=== PATIENT | male | born 1965 | race Caucasian/White ===

== ENCOUNTER 2018-02-26 16:27 | Inpatient (IN) | payer MEDICAID ==
[~2018-02-26] VITALS: Ht 175.3 cm; Wt 67.2 kg
[2018-02-26] MEDS ORDERED: ALBUTEROL SULF 2.5 MG/0.5ML(0.5%) NEB SOLN NEB ONE (19:30)
[2018-02-26] MEDS ORDERED: DEXAMETHASONE SOD PHOS 10MG/1ML VIAL INJ IM ONE (19:30)
[2018-02-26] MEDS ORDERED: IPRATROPIUM BROM 0.5 MG/2.5ML INH SOL NEB ONE (19:30)
[2018-02-26] MEDS ORDERED: BACLOFEN 10 MG TAB PO ONE (20:00)
[2018-02-26] MEDS ORDERED: MEPERIDINE HCL (50 MG/ML) 1 ML VIAL IV ONE (20:00)
[2018-02-26] MEDS ORDERED: ONDANSETRON HCL 4 MG/2 ML VIAL IV ONE (20:00)
[2018-02-26] MEDS ORDERED: ACETAMINOPHEN 325 MG TAB PO PRN (21:00)
[2018-02-26] MEDS ORDERED: TEMAZEPAM 15 MG CAP PO PRN (21:00)
[2018-02-26] MEDS ORDERED: CYCLOBENZAPRINE HCL 10 MG TAB PO PRN (21:00)
[2018-02-26] MEDS ORDERED: ONDANSETRON HCL 4 MG/2 ML VIAL IV PRN (21:00)
[2018-02-26] MEDS ORDERED: MORPHINE SULFATE 4 MG/ML SYR/VIAL IV PRN (21:00)
[2018-02-26 21:24] LABS: Basophils # (auto) 0.1 uL; Basophils % (auto) 0.6 % (0.0-2.0); Eosinophils # (auto) 0.1 uL; Eosinophils % (auto) 0.7 % (0.0-7.0); Hematocrit 47.2 % (41.0-53.0); Lymphocytes # (auto) 2.6 uL; Lymphocytes % (auto) 18.5 % (10.0-50.0); Mean Corpuscular Hemoglobin 30.7 pg (28.0-32.0); Mean Corpuscular Volume 90.3 fL (80.0-100.0); Monocytes # (auto) 0.6 uL; Monocytes % (auto) 4.3 % (0.0-12.0); Neutrophils # (auto) 10.7 uL; Neutrophils % (auto) 75.9 % (37.0-80.0); Nucleated Red Blood Cells % 0.1 %; Platelet Count (auto) 334 10^3/uL (140-450); Red Blood Cells 5.22 10^6/uL (4.5-5.90); Red Cell Distribution Width 13.2 % (11.8-14.3)
[2018-02-26 21:38] LABS: Albumin 3.5 g/dL (3.4-5.0); Calcium 8.1 mg/dL (8.5-10.1); Potassium 3.7 mmol/L (3.5-5.1)
[2018-02-26 21:41] LABS: BUN/Creatinine Ratio 14.9; Bilirubin, Total 0.3 mg/dL (0.2-1.0); Total Protein 7.3 g/dL (6.4-8.2)
[2018-02-26] MEDS ORDERED: LABETALOL HCL 5 MG/ML ML 20ML VIAL IV ONE (22:45)
[2018-02-26] MEDS: FAMOTIDINE 20 MG TAB PO SCH (23:16)
[2018-02-26 23:41] VITALS: BP 185/113
[2018-02-27 05:43] VITALS: BP 144/94
[2018-02-27 08:20] VITALS: BP 160/100
[2018-02-27] MEDS ORDERED: METOPROLOL TARTRATE 25 MG TAB PO SCH (10:00)
[2018-02-27] MEDS: FAMOTIDINE 20 MG TAB PO SCH (10:15)
[2018-02-27] MEDS ORDERED: THIAMINE 100mg/ml INJ (200mg/2ml VIAL) IV ONE (11:15)
[2018-02-27] MEDS ORDERED: LORazepam 2MG/ML-1ML VIAL IV PRN (11:15)
[2018-02-27] MEDS ORDERED: LISINOPRIL 10 MG TAB PO ONE (11:15)
[2018-02-27] MEDS: HYDROcodone-ACET 5/325MG TAB PO PRN ×2 (11:24→16:37)
[2018-02-27 12:16] VITALS: BP 141/97
[2018-02-27 16:14] VITALS: BP 141/97
[2018-02-27 16:51] VITALS: BP 131/93
[2018-02-28] MEDS ORDERED: THIAMINE 100mg/ml INJ (200mg/2ml VIAL) IV SCH (10:00)
[2018-02-28] MEDS ORDERED: LISINOPRIL 10 MG TAB PO SCH (10:00)
== END 2018-02-27 16:45 | disposition home or self-care (01) | DRG 342 ==
LOC: ER 16:32 → OVERFLOW 20:55 → CENTRAL 22:17
PROVIDERS: ADMIT Nurse Practitioner; ATTEND Internal Medicine
DX: S43.101A Unspecified dislocation of right acromioclavicular joint, initial encounter (principal); I10 Essential (primary) hypertension; S16.1XXA Strain of muscle, fascia and tendon at neck level, initial encounter; M19.90 Unspecified osteoarthritis, unspecified site; M54.9 Dorsalgia, unspecified; M62.838 Other muscle spasm; V29.9XXA Motorcycle rider (driver) (passenger) injured in unspecified traffic accident, initial encounter; Z72.0 Tobacco use; Z79.899 Other long term (current) drug therapy; Y93.89 Activity, other specified; Y92.89 Other specified places as the place of occurrence of the external cause; Y99.8 Other external cause status
CPT/HCPCS: 36415; 72040; 73030; 80053; 85025; 96374; 96375; G0378; J2405

== ENCOUNTER 2018-10-25 13:24 | Emergency (ER) | payer MEDICAID ==
[~2018-10-25] VITALS: Ht 177.8 cm; Wt 72.6 kg
[2018-10-25 13:57] LABS: Urine WBC None Seen /hpf (0 - 3)
[2018-10-25 14:04] LABS: Urine Bacteria NONE SEEN /hpf (None Seen); Urine Blood 2+ /uL (Negative); Urine Specific Gravity 1.005 (1.001-1.035)
[2018-10-25] MEDS ORDERED: SODIUM CHLORIDE 0.9% 1,000 ML IV ONE (15:30)
[2018-10-25 17:44] VITALS: BP 142/78
[2018-10-25] MEDS ORDERED: KETOROLAC TROMETH 30 MG/ML 1ML VIAL IV ONE (17:45)
== END 2018-10-25 17:46 | disposition home or self-care (01) ==
LOC: ER 13:24
DX: R10.9 Unspecified abdominal pain (principal); R11.2 Nausea with vomiting, unspecified; F17.210 Nicotine dependence, cigarettes, uncomplicated; I10 Essential (primary) hypertension; M19.90 Unspecified osteoarthritis, unspecified site; Z87.442 Personal history of urinary calculi
CPT/HCPCS: 74176; 81001; 93005; 96360; 99284; J7030

== ENCOUNTER 2020-07-31 21:44 | Emergency (ER) | payer MEDICAID ==
[~2020-07-31] VITALS: Ht 175.3 cm; Wt 74.8 kg
[2020-08-01] MEDS ORDERED: TETANUS-DIPTH-ACEL PERTUSSIS 0.5ML SYR Tdap IM ONE (02:30)
[2020-08-01] MEDS ORDERED: cefTRIAXone SOD 1,000 MG VL IM ONE (02:30)
[2020-08-01] MEDS ORDERED: cloNIDine HCL 0.1 MG TAB PO ONE (02:45)
[2020-08-01 03:26] VITALS: BP 140/91
[2020-08-01] MEDS ORDERED: BACITRACIN TOP OINT 1 UD PKG TOP ONE (05:45)
== END 2020-08-01 05:59 | disposition home or self-care (01) ==
LOC: ER 21:45
DX: S67.02XA Crushing injury of left thumb, initial encounter (principal); S62.525B Nondisplaced fracture of distal phalanx of left thumb, initial encounter for open fracture; F17.210 Nicotine dependence, cigarettes, uncomplicated; F12.10 Cannabis abuse, uncomplicated; X58.XXXA Exposure to other specified factors, initial encounter; Y93.89 Activity, other specified; Y92.89 Other specified places as the place of occurrence of the external cause; Y99.8 Other external cause status
CPT/HCPCS: 12002; 73130; 90471; 90715; 96372; 99284; J0696

== ENCOUNTER 2021-03-19 10:55 | Emergency (ER) | payer MEDICAID ==
[~2021-03-19] VITALS: Ht 162.6 cm; Wt 74.8 kg
[2021-03-19 11:00] VITALS: BP 155/122
[2021-03-19 12:03] LABS: Basophils # (auto) 0.1 10 ^3/uL (0-0.2); Eosinophils # (auto) 0.5 10 ^3/uL (0-0.8); Eosinophils % (auto) 5.3 % (0.0-7.0); Hematocrit 45.5 % (41.0-53.0); Hemoglobin 15.7 g/dL (13.5-17.5); Lymphocytes # (auto) 3.3 10 ^3/uL (0.4-5.4); Lymphocytes % (auto) 31.7 % (10.0-50.0); Mean Corpuscular Hgb Conc. 34.5 g/dL (32.0-36.0); Mean Corpuscular Volume 84.2 fL (80.0-100.0); Monocytes # (auto) 0.4 10 ^3/uL (0-1.3); Monocytes % (auto) 4.2 % (0.0-12.0); Neutrophils # (auto) 5.9 10 ^3/uL (1.6-8.6); Neutrophils % (auto) 57.8 % (37.0-80.0); Nucleated Red Blood Cells % 0.1 %; Red Cell Distribution Width 13.7 % (11.8-14.3); White Blood Cell 10.3 10^3/uL (4.4-10.8)
[2021-03-19 12:37] LABS: Albumin 3.8 g/dL (3.4-5.0); Bilirubin, Total 0.5 mg/dL (0.2-1.0); Calcium 9.2 mg/dL (8.5-10.1); Total Protein 7.2 g/dL (6.4-8.2)
[2021-03-19] MEDS ORDERED: cefTRIAXone SOD 500 MG VL IM ONE (13:45)
[2021-03-19] MEDS ORDERED: TRAM-297 PO (13:56)
[2021-03-19] MEDS ORDERED: DOXY100C2 PO (13:56)
== END 2021-03-19 16:03 | disposition home or self-care (01) ==
LOC: ER 10:55
DX: N45.1 Epididymitis (principal); I10 Essential (primary) hypertension; F17.210 Nicotine dependence, cigarettes, uncomplicated; F12.10 Cannabis abuse, uncomplicated; Z87.442 Personal history of urinary calculi
CPT/HCPCS: 36415; 74176; 76870; 80053; 83690; 85025; 96372; 99284; J0696

== ENCOUNTER 2023-02-22 08:54 | Inpatient (IN) | payer MEDICAID ==
[~2023-02-22] VITALS: Ht 175.3 cm; Wt 73.8 kg
[~2023-02-22 08:54] MED LIST: DOXY100C4 PO; TRAM-297 PO
[2023-02-22 10:02] LABS: Basophils # (auto) 0.1 10 ^3/uL (0-0.2); Basophils % (auto) 1.1 % (0.0-2.0); Eosinophils # (auto) 0.6 10 ^3/uL (0-0.8); Eosinophils % (auto) 5.1 % (0.0-7.0); Hematocrit 42.9 % (41.0-53.0); Hemoglobin 14.5 g/dL (13.5-17.5); Lymphocytes # (auto) 3.2 10 ^3/uL (0.4-5.4); Lymphocytes % (auto) 26.8 % (10.0-50.0); Mean Corpuscular Hemoglobin 28.6 pg (28.0-32.0); Mean Corpuscular Hgb Conc. 33.7 g/dL (32.0-36.0); Monocytes # (auto) 0.7 10 ^3/uL (0-1.3); Monocytes % (auto) 5.5 % (0.0-12.0); Neutrophils # (auto) 7.3 10 ^3/uL (1.6-8.6); Neutrophils % (auto) 61.5 % (37.0-80.0); Nucleated Red Blood Cells % 0.1 %; Red Blood Cells 5.05 10^6/uL (4.5-5.90); Red Cell Distribution Width 14.4 % (11.8-14.3); White Blood Cell 11.8 10^3/uL (4.4-10.8)
[2023-02-22 10:23] LABS: Alanine Aminotransferase 13 U/L (7-40); Albumin 4.3 g/dL (3.2-4.8); Alkaline Phosphatase 97 U/L (46-116); Anion Gap 5 (5-15); Aspartate Aminotransferase 18 U/L (13-40); BUN/Creatinine Ratio 14.9 (10.0-20.0); Blood Urea Nitrogen 21 mg/dL (9-23); Carbon Dioxide 28 mmol/L (20-30); Chloride 106 mmol/L (98-107); Glucose 89 mg/dL (74-106); Lipase 48 U/L (12-53); Sodium 139 mmol/L (136-145)
[2023-02-22 10:24] LABS: Bilirubin, Total 0.3 mg/dL (0.2-1.0)
[2023-02-22] MEDS ORDERED: MORPHINE SULFATE INJ 2 MG/ml SYRG IV ONE (11:00)
[2023-02-22] MEDS ORDERED: SODIUM CHLORIDE 0.9% 1,000 ML IV ONE (11:00)
[2023-02-22] MEDS ORDERED: SODIUM CHLORIDE 0.9% 500 ML IVB ONE (11:00)
[2023-02-22] MEDS ORDERED: ONDANSETRON HCL 4 MG/2 ML VIAL IV ONE (11:00)
[2023-02-22] MEDS ORDERED: cloNIDine HCL 0.1 MG TAB PO ONE (11:00)
[2023-02-22] MEDS ORDERED: MORPHINE SULFATE INJ 2 MG/ml SYRG ONE (11:30)
[2023-02-22] MEDS ORDERED: cloNIDine HCL 0.1 MG TAB ONE (11:30)
[2023-02-22] MEDS ORDERED: ONDANSETRON HCL 4 MG/2 ML VIAL ONE (11:30)
[2023-02-22] MEDS ORDERED: IOHEXOL 300 MG/ML 100ML BOTTLE IJ ONE (12:07)
[2023-02-22 12:35] LABS: Urine Bacteria NONE SEEN /hpf (None Seen); Urine Blood 3+ /uL (Negative); Urine Clarity Clear (Clear); Urine Color Yellow (Yellow); Urine Protein, UAD TRACE (Negative); Urine Specific Gravity 1.014 (1.001-1.035); Urine Urobilinogen Normal (Negative); Urine WBC 36 /hpf (0 - 3); Urine pH 6.5 (5.0-8.0)
[2023-02-22] MEDS ORDERED: cefTRIAXone 1GM/50ML D5W 50 ML IV ONE (13:30)
[2023-02-22] MEDS: SODIUM CHLORIDE 0.9% 1,000 ML IV SCH (14:00)
[2023-02-22] MEDS ORDERED: ONDANSETRON HCL 4 MG/2 ML VIAL IV PRN (14:00)
[2023-02-22] MEDS ORDERED: ACETAMINOPHEN 325 MG TAB PO PRN (14:00)
[2023-02-22 15:35] VITALS: PULSE 20; RESP 20; O2SAT 96
[2023-02-22 20:06] VITALS: BP 155/92; PULSE 83; RESP 17; TEMP 97.7; O2SAT 96
[2023-02-22 20:08] VITALS: BP 155/92; PULSE 83; RESP 17; TEMP 97.5; O2SAT 96
[2023-02-22] MEDS ORDERED: HYDROcodone-ACET 5/325MG TAB ONE (20:57)
[2023-02-22] MEDS: HYDROcodone-ACET 5/325MG TAB PO PRN (21:04)
[2023-02-22] MEDS ORDERED: hydrALAZINE HCL 20 MG/ML VL ONE (21:31)
[2023-02-22] MEDS: hydrALAZINE HCL 20 MG/ML VL IV PRN (21:36)
[2023-02-23 06:37] LABS: Alanine Aminotransferase 12 U/L (7-40); Albumin 3.9 g/dL (3.2-4.8); Alkaline Phosphatase 90 U/L (46-116); Anion Gap 5 (5-15); Aspartate Aminotransferase 15 U/L (13-40); BUN/Creatinine Ratio 12.7 (10.0-20.0); Blood Urea Nitrogen 20 mg/dL (9-23); Calcium 8.5 mg/dL (8.7-10.4); Carbon Dioxide 25 mmol/L (20-30); Chloride 108 mmol/L (98-107); Glucose 93 mg/dL (74-106); Potassium 3.7 mmol/L (3.5-5.1); Sodium 138 mmol/L (136-145)
[2023-02-23 06:38] LABS: Bilirubin, Total 0.3 mg/dL (0.2-1.0); Total Protein 6.4 g/dL (5.7-8.2)
[2023-02-23 06:39] LABS: Basophils # (auto) 0.1 10 ^3/uL (0-0.2); Basophils % (auto) 0.9 % (0.0-2.0); Eosinophils # (auto) 0.7 10 ^3/uL (0-0.8); Eosinophils % (auto) 5.2 % (0.0-7.0); Hematocrit 41.6 % (41.0-53.0); Hemoglobin 14.1 g/dL (13.5-17.5); Lymphocytes # (auto) 3.8 10 ^3/uL (0.4-5.4); Lymphocytes % (auto) 28.7 % (10.0-50.0); Mean Corpuscular Hemoglobin 28.5 pg (28.0-32.0); Mean Corpuscular Volume 83.7 fL (80.0-100.0); Monocytes # (auto) 0.9 10 ^3/uL (0-1.3); Monocytes % (auto) 6.7 % (0.0-12.0); Neutrophils # (auto) 7.7 10 ^3/uL (1.6-8.6); Neutrophils % (auto) 58.5 % (37.0-80.0); Red Blood Cells 4.96 10^6/uL (4.5-5.90); Red Cell Distribution Width 14.3 % (11.8-14.3); White Blood Cell 13.2 10^3/uL (4.4-10.8)
[2023-02-23] MEDS: SODIUM CHLORIDE 0.9% 1,000 ML IV SCH ×2 (06:50→23:20)
[2023-02-23 08:00] VITALS: PULSE 88; RESP 17; RESP 18; O2SAT 98
[2023-02-23 09:00] VITALS: BP 156/106; PULSE 104; RESP 16; TEMP 98.3; O2SAT 97
[2023-02-23] MEDS: cefTRIAXone 1GM/50ML D5W 50 ML IV SCH (10:59)
[2023-02-23 13:00] VITALS: BP 171/107; PULSE 88; RESP 18; TEMP 98.4; O2SAT 98
[2023-02-23] MEDS: hydrALAZINE HCL 20 MG/ML VL IV PRN ×2 (16:19→22:28)
[2023-02-23 16:36] VITALS: BP 182/115; PULSE 93; RESP 20; TEMP 98.7; O2SAT 98
[2023-02-23] MEDS: HYDROcodone-ACET 5/325MG TAB PO PRN (18:03)
[2023-02-23 20:00] VITALS: BP 178/107; PULSE 103; RESP 20; TEMP 98.3; O2SAT 96
[2023-02-23 22:00] VITALS: BP 178/107; PULSE 103; RESP 20; TEMP 98.3; O2SAT 96
[2023-02-23] MEDS ORDERED: HYDROcodone-ACET 10/325MG TAB PO ONE (22:30)
[2023-02-24] VITALS (8 sets, daily range): BP systolic 116–169; BP diastolic 87–107; PULSE 72–105; RESP 15–21; TEMP 36.3; O2SAT 94–99
[2023-02-24] MEDS: hydrALAZINE HCL 20 MG/ML VL IV PRN ×2 (05:34→17:39)
[2023-02-24] MEDS: HYDROcodone-ACET 5/325MG TAB PO PRN (05:34)
[2023-02-24 06:47] LABS: INR 0.92 (0.9-1.15); Partial Thromboplastin Time 26.5 SEC (24.5-34.5); Prothrombin Time 9.7 sec (9.3-11.8)
[2023-02-24] MEDS: cefTRIAXone 1GM/50ML D5W 50 ML IV SCH (10:06)
[2023-02-24] MEDS: amLODIPine BESYLATE 5 MG TAB PO SCH (11:30)
[2023-02-24] MEDS ORDERED: MIDAZOLAM HCL 2MG/2ML 2ml VIAL (1mg/ml) ONE (14:09)
[2023-02-24] MEDS ORDERED: ROCURONIUM 10MG/ML 10ML VIAL IV ONE (14:09)
[2023-02-24] MEDS ORDERED: GLYCOPYRROLATE 0.2 MG/ML 1ML VIAL ONE (14:09)
[2023-02-24] MEDS ORDERED: ONDANSETRON HCL 4 MG/2 ML VIAL ONE (14:09)
[2023-02-24] MEDS ORDERED: LIDOCAINE 2% (LOCAL ANESTH.) PF 5ml SDV ONE (14:09)
[2023-02-24] MEDS ORDERED: fentaNYL CITRATE 100 MCG/2 ML VL ONE (14:09)
[2023-02-24] MEDS ORDERED: PROPOFOL 10 MG/ML 20 ML IV ONE (14:09)
[2023-02-24] MEDS ORDERED: HYDROmorphone HCL 2 MG/ML VL/or syr ONE (14:09)
[2023-02-24] MEDS ORDERED: KETOROLAC TROMETH 30 MG/ML 1ML VIAL ONE (14:10)
[2023-02-24] MEDS ORDERED: DexAMETHasone SOD PHOS 10MG/1ML VIAL INJ ONE (14:10)
[2023-02-24] MEDS ORDERED: ePHEDrine SULFATE 50 MG/ML AMP ONE (14:14)
[2023-02-24] MEDS ORDERED: SUGAMMADEX 200mg/2ml Vial (100MG/ML) IV ONE (15:08)
[2023-02-24] MEDS: SODIUM CHLORIDE 0.9% 1,000 ML IV SCH (16:00)
[2023-02-24] MEDS ORDERED: ONDANSETRON HCL 4 MG/2 ML VIAL IV PRN (16:15)
[2023-02-24] MEDS ORDERED: HYDROmorphone HCL 2 MG/ML VL/or syr IV PRN (16:15)
[2023-02-25 06:29] LABS: Basophils # (auto) 0 10 ^3/uL (0-0.2); Basophils % (auto) 0.2 % (0.0-2.0); Eosinophils # (auto) 0 10 ^3/uL (0-0.8); Hematocrit 36.3 % (41.0-53.0); Hemoglobin 12.3 g/dL (13.5-17.5); Lymphocytes # (auto) 1.5 10 ^3/uL (0.4-5.4); Lymphocytes % (auto) 9.8 % (10.0-50.0); Mean Corpuscular Hemoglobin 28.5 pg (28.0-32.0); Mean Corpuscular Hgb Conc. 33.8 g/dL (32.0-36.0); Mean Corpuscular Volume 84.3 fL (80.0-100.0); Monocytes # (auto) 0.8 10 ^3/uL (0-1.3); Monocytes % (auto) 5.1 % (0.0-12.0); Neutrophils # (auto) 12.9 10 ^3/uL (1.6-8.6); Neutrophils % (auto) 84.9 % (37.0-80.0); Red Blood Cells 4.31 10^6/uL (4.5-5.90); Red Cell Distribution Width 14.3 % (11.8-14.3); White Blood Cell 15.2 10^3/uL (4.4-10.8)
[2023-02-25 06:45] LABS: Anion Gap 7 (5-15); Carbon Dioxide 27 mmol/L (20-30); Chloride 105 mmol/L (98-107); Potassium 4.1 mmol/L (3.5-5.1); Sodium 139 mmol/L (136-145)
[2023-02-25 06:47] LABS: Calcium 8.8 mg/dL (8.7-10.4)
[2023-02-25 06:51] LABS: BUN/Creatinine Ratio 13.7 (10.0-20.0); Blood Urea Nitrogen 24 mg/dL (9-23); Glucose 141 mg/dL (74-106)
[2023-02-25] MEDS ORDERED: ERGOCALCIFEROL 50,000 UNIT(1.25MG) CAP PO SCH (07:45)
[2023-02-25 08:00] VITALS: BP 112/61; PULSE 94; RESP 20; TEMP 98.1; O2SAT 95
[2023-02-25] MEDS: amLODIPine BESYLATE 5 MG TAB PO SCH (10:23)
[2023-02-25] MEDS: SODIUM CHLORIDE 0.9% 1,000 ML IV SCH (10:23)
[2023-02-25] MEDS: cefTRIAXone 1GM/50ML D5W 50 ML IV SCH (10:23)
[2023-02-25 17:00] VITALS: BP 123/87; PULSE 105; RESP 17; TEMP 98.2; O2SAT 97
[2023-02-25 20:00] VITALS: RESP 20; O2SAT 95
[2023-02-26] MEDS: SODIUM CHLORIDE 0.9% 1,000 ML IV SCH ×2 (01:20→17:24)
[2023-02-26 05:00] VITALS: BP 115/92; PULSE 88; RESP 20; TEMP 98.4; O2SAT 96
[2023-02-26] MEDS: hydrALAZINE HCL 20 MG/ML VL IV PRN ×2 (05:13→17:24)
[2023-02-26 06:05] LABS: Basophils # (auto) 0.1 10 ^3/uL (0-0.2); Basophils % (auto) 0.9 % (0.0-2.0); Eosinophils # (auto) 0.5 10 ^3/uL (0-0.8); Hematocrit 38.9 % (41.0-53.0); Lymphocytes # (auto) 3.7 10 ^3/uL (0.4-5.4); Lymphocytes % (auto) 22.7 % (10.0-50.0); Mean Corpuscular Hemoglobin 28.4 pg (28.0-32.0); Mean Corpuscular Hgb Conc. 33.5 g/dL (32.0-36.0); Mean Corpuscular Volume 84.6 fL (80.0-100.0); Monocytes # (auto) 1.1 10 ^3/uL (0-1.3); Monocytes % (auto) 6.9 % (0.0-12.0); Neutrophils # (auto) 10.9 10 ^3/uL (1.6-8.6); Neutrophils % (auto) 66.5 % (37.0-80.0); Red Blood Cells 4.59 10^6/uL (4.5-5.90); Red Cell Distribution Width 14.8 % (11.8-14.3); White Blood Cell 16.3 10^3/uL (4.4-10.8)
[2023-02-26 06:14] LABS: Chloride 109 mmol/L (98-107); Potassium 3.5 mmol/L (3.5-5.1); Sodium 141 mmol/L (136-145)
[2023-02-26 06:15] LABS: Anion Gap 8 (5-15); Calcium 8.9 mg/dL (8.5-10.1); Carbon Dioxide 24 mmol/L (20-30)
[2023-02-26 06:21] LABS: BUN/Creatinine Ratio 11.9 (10.0-20.0); Blood Urea Nitrogen 16 mg/dL (9-23); Glucose 88 mg/dL (74-106)
[2023-02-26] MEDS ORDERED: ERGOCALCIFEROL 50,000 UNIT(1.25MG) CAP PO SCH (08:45)
[2023-02-26 09:00] VITALS: BP 140/97; PULSE 93; RESP 20; TEMP 98.8; O2SAT 95
[2023-02-26] MEDS: CYANOCOBALAMIN 500 MCG TAB PO SCH (10:12)
[2023-02-26] MEDS: levoFLOXacin 250 MG TAB PO SCH (10:13)
[2023-02-26] MEDS: MORPHINE SULFATE INJ 2 MG/ml SYRG IV PRN ×2 (10:13→20:30)
[2023-02-26] MEDS: amLODIPine BESYLATE 5 MG TAB PO SCH (10:13)
[2023-02-26 13:00] VITALS: BP 136/83; PULSE 96; RESP 18; TEMP 98.7; O2SAT 92
[2023-02-26 17:00] VITALS: BP 160/100; PULSE 99; RESP 20; TEMP 98.5; O2SAT 96
[2023-02-26 18:21] VITALS: BP 139/97
[2023-02-26 22:00] VITALS: BP 153/101; PULSE 96; RESP 18; TEMP 98.7; O2SAT 96
[2023-02-27 06:55] LABS: Chloride 107 mmol/L (98-107); Potassium 3.8 mmol/L (3.5-5.1); Sodium 139 mmol/L (136-145)
[2023-02-27 06:56] LABS: Anion Gap 8 (5-15); Calcium 8.8 mg/dL (8.5-10.1); Carbon Dioxide 24 mmol/L (20-30)
[2023-02-27 07:01] LABS: BUN/Creatinine Ratio 13.3 (10.0-20.0); Blood Urea Nitrogen 19 mg/dL (9-23); Glucose 102 mg/dL (74-106)
[2023-02-27 07:02] LABS: Basophils # (auto) 0.1 10 ^3/uL (0-0.2); Basophils % (auto) 0.7 % (0.0-2.0); Eosinophils # (auto) 0.7 10 ^3/uL (0-0.8); Eosinophils % (auto) 5.3 % (0.0-7.0); Hematocrit 41.3 % (41.0-53.0); Hemoglobin 13.9 g/dL (13.5-17.5); Lymphocytes # (auto) 3.4 10 ^3/uL (0.4-5.4); Lymphocytes % (auto) 24.7 % (10.0-50.0); Mean Corpuscular Hemoglobin 28.5 pg (28.0-32.0); Mean Corpuscular Hgb Conc. 33.6 g/dL (32.0-36.0); Mean Corpuscular Volume 84.7 fL (80.0-100.0); Monocytes % (auto) 7.1 % (0.0-12.0); Neutrophils # (auto) 8.6 10 ^3/uL (1.6-8.6); Neutrophils % (auto) 62.2 % (37.0-80.0); Nucleated Red Blood Cells % 0.1 %; Red Blood Cells 4.87 10^6/uL (4.5-5.90); Red Cell Distribution Width 14.4 % (11.8-14.3); White Blood Cell 13.9 10^3/uL (4.4-10.8)
[2023-02-27 07:30] VITALS: PULSE 99; RESP 19; O2SAT 94
[2023-02-27] MEDS ORDERED: AML5T PO (08:37)
[2023-02-27] MEDS ORDERED: ACET-1882 PO (08:37)
[2023-02-27] MEDS ORDERED: ERGO1CAP23 PO (08:37)
[2023-02-27] MEDS ORDERED: CYAN500T3 PO (08:37)
[2023-02-27] MEDS ORDERED: TRAM50TA2 PO (08:37)
[2023-02-27] MEDS ORDERED: METO-6 PO (08:37)
[2023-02-27] MEDS ORDERED: LEVO250T58 PO (08:37)
[2023-02-27 09:00] VITALS: BP 143/86; PULSE 99; RESP 20; TEMP 98.5; O2SAT 94
[2023-02-27] MEDS ORDERED: METOPROLOL SUCCINATE XL 50 MG TAB PO SCH (10:00)
[2023-02-27] MEDS: levoFLOXacin 250 MG TAB PO SCH (10:30)
[2023-02-27] MEDS: CYANOCOBALAMIN 500 MCG TAB PO SCH (10:30)
[2023-02-27] MEDS: amLODIPine BESYLATE 5 MG TAB PO SCH (10:31)
[2023-02-27] MEDS: SODIUM CHLORIDE 0.9% 1,000 ML IV SCH (10:31)
[2023-02-27 13:00] VITALS: BP 148/88; PULSE 90; RESP 20; TEMP 98.1; O2SAT 98
[2023-02-27 13:59] VITALS: BP 148/88; PULSE 90; RESP 20; TEMP 98.1; O2SAT 98
== END 2023-02-27 16:32 | disposition home health service (06) | DRG 710 ==
LOC: ER 08:54 → OVERFLOW 13:57 → WEST WING 19:44
PROVIDERS: ADMIT Internal Medicine; ATTEND Internal Medicine
PROC: 0TBB8ZZ Excision of Bladder, Via Natural or Artificial Opening Endoscopic (ICD-10-PCS; principal; 2023-02-24 14:33)
DX: A41.9 Sepsis, unspecified organism (principal); N17.0 Acute kidney failure with tubular necrosis; K76.0 Fatty (change of) liver, not elsewhere classified; N13.6 Pyonephrosis; R31.0 Gross hematuria; E55.9 Vitamin D deficiency, unspecified; F12.90 Cannabis use, unspecified, uncomplicated; F17.210 Nicotine dependence, cigarettes, uncomplicated; K40.90 Unilateral inguinal hernia, without obstruction or gangrene, not specified as recurrent; N32.9 Bladder disorder, unspecified; I10 Essential (primary) hypertension; Z80.3 Family history of malignant neoplasm of breast; Z83.3 Family history of diabetes mellitus; Z87.442 Personal history of urinary calculi; Z71.6 Tobacco abuse counseling
CPT/HCPCS: 36415; 71046; 74177; 76775; 80048; 80053; 81001; 82306; 82607; 83690; 83735; 84443; 84484; 85025; 85610; 85730; 86850; 86900; 86901; 87040; 87086; 93005; 96361; 96365; 96375; G0378; J1100; J1885; J2001; J2250; J2405; J2704

== ENCOUNTER 2023-04-24 09:22 | Inpatient (IN) | payer MEDICAID ==
[~2023-04-24] VITALS: Ht 175.3 cm; Wt 70.0 kg
[~2023-04-24 09:22] MED LIST changes: +ACET-1882 PO; +AML5T PO; +CYAN500T3 PO; -DOXY100C4 PO; +ERGO1CAP23 PO; +LEVO250T58 PO; +METO-6 PO; -TRAM-297 PO; +TRAM50TA2 PO
[2023-04-24] MEDS: amLODIPine BESYLATE 5 MG TAB PO ONE (10:21)
[2023-04-24 11:01] LABS: Basophils # (auto) 0.1 10 ^3/uL (0-0.2); Eosinophils # (auto) 0.5 10 ^3/uL (0-0.8); Eosinophils % (auto) 4.3 % (0.0-7.0); Hematocrit 41.7 % (41.0-53.0); Hemoglobin 13.9 g/dL (13.5-17.5); Lymphocytes # (auto) 3.6 10 ^3/uL (0.4-5.4); Lymphocytes % (auto) 28.2 % (10.0-50.0); Mean Corpuscular Hgb Conc. 33.3 g/dL (32.0-36.0); Mean Corpuscular Volume 84.2 fL (80.0-100.0); Monocytes # (auto) 0.7 10 ^3/uL (0-1.3); Monocytes % (auto) 5.8 % (0.0-12.0); Neutrophils # (auto) 7.7 10 ^3/uL (1.6-8.6); Neutrophils % (auto) 60.7 % (37.0-80.0); Red Blood Cells 4.95 10^6/uL (4.5-5.90); Red Cell Distribution Width 14.5 % (11.8-14.3); White Blood Cell 12.6 10^3/uL (4.4-10.8)
[2023-04-24 11:15] LABS: Chloride 104 mmol/L (98-107); Potassium 3.6 mmol/L (3.5-5.1); Sodium 140 mmol/L (136-145)
[2023-04-24 11:16] LABS: Anion Gap 7 (5-15); Calcium 9.2 mg/dL (8.5-10.1); Carbon Dioxide 29 mmol/L (20-30)
[2023-04-24 11:21] LABS: Blood Urea Nitrogen 15 mg/dL (9-23); Glucose 100 mg/dL (74-106)
[2023-04-24 11:49] LABS: INR 0.89 (0.9-1.15); Prothrombin Time 9.4 sec (9.3-11.8)
[2023-04-24] MEDS ORDERED: DOCUSATE SOD 100 MG CAP PO PRN (13:45)
[2023-04-24 14:41] LABS: INR 0.9 (0.9-1.15); Prothrombin Time 9.5 sec (9.3-11.8)
[2023-04-24] MEDS: SODIUM CHLORIDE 0.9% 1,000 ML IV SCH (15:32)
[2023-04-24] MEDS: ERGOCALCIFEROL 50,000 UNIT(1.25MG) CAP PO SCH (15:32)
[2023-04-24] MEDS: ONDANSETRON HCL 4 MG/2 ML VIAL IV PRN (15:42)
[2023-04-24] MEDS: MORPHINE SULFATE INJ 2 MG/ml SYRG IV PRN (15:48)
[2023-04-24] MEDS: metroNIDAZOLE 500MG/100ML 100 ML IV SCH (15:48)
[2023-04-24 17:38] VITALS: BP 189/122; PULSE 93; RESP 15; TEMP 98.2; O2SAT 98
[2023-04-24 17:54] VITALS: PULSE 93; RESP 18
[2023-04-24] MEDS: hydrALAZINE HCL 20 MG/ML VL IV PRN (18:02)
[2023-04-24 20:00] VITALS: PULSE 95; RESP 18; O2SAT 97
[2023-04-24 22:00] VITALS: BP 161/110; PULSE 101; RESP 17; TEMP 98.2; O2SAT 98
[2023-04-24 22:01] LABS: Urine Bacteria FEW /hpf (None Seen); Urine Blood TRACE /uL (Negative); Urine Clarity Clear (Clear); Urine Color Colorless (Yellow); Urine Protein, UAD TRACE (Negative); Urine Specific Gravity 1.007 (1.001-1.035); Urine Urobilinogen Normal (Negative); Urine WBC 4 /hpf (0 - 3)
[2023-04-24 22:09] LABS: Amphetamine Screen, Urine Neg (NEGATIVE); Barbiturate Scree,Urine Neg (NEGATIVE); Benzodiazephine Screen, Urine Neg (NEGATIVE)
[2023-04-24 22:10] LABS: Cannabinoid Screen, Urine Pos (NEGATIVE); Cocaine Screen, Urine Neg (NEGATIVE); Opiate Scree,Urine Neg (NEGATIVE); Phencyclidine Screen, Urine Neg (NEGATIVE)
[2023-04-25] VITALS (10 sets, daily range): BP systolic 135–168; BP diastolic 84–102; PULSE 74–97; RESP 12–20; TEMP 97.6–98.2; O2SAT 95–99
[2023-04-25 05:30] LABS: Basophils # (auto) 0.1 10 ^3/uL (0-0.2); Basophils % (auto) 0.8 % (0.0-2.0); Eosinophils # (auto) 0.6 10 ^3/uL (0-0.8); Eosinophils % (auto) 5.4 % (0.0-7.0); Hematocrit 39.1 % (41.0-53.0); Hemoglobin 12.7 g/dL (13.5-17.5); Lymphocytes # (auto) 3.6 10 ^3/uL (0.4-5.4); Lymphocytes % (auto) 30.3 % (10.0-50.0); Mean Corpuscular Hemoglobin 27.5 pg (28.0-32.0); Mean Corpuscular Hgb Conc. 32.6 g/dL (32.0-36.0); Mean Corpuscular Volume 84.4 fL (80.0-100.0); Monocytes # (auto) 0.9 10 ^3/uL (0-1.3); Monocytes % (auto) 7.6 % (0.0-12.0); Neutrophils # (auto) 6.6 10 ^3/uL (1.6-8.6); Neutrophils % (auto) 55.9 % (37.0-80.0); Red Blood Cells 4.63 10^6/uL (4.5-5.90); Red Cell Distribution Width 14.6 % (11.8-14.3); White Blood Cell 11.8 10^3/uL (4.4-10.8)
[2023-04-25 06:11] LABS: Alanine Aminotransferase 12 U/L (7-40); Albumin 3.8 g/dL (3.2-4.8); Alkaline Phosphatase 87 U/L (46-116); Anion Gap 8 (5-15); Aspartate Aminotransferase 14 U/L (13-40); BUN/Creatinine Ratio 8.5 (10.0-20.0); Blood Urea Nitrogen 12 mg/dL (9-23); Calcium 8.6 mg/dL (8.5-10.1); Carbon Dioxide 26 mmol/L (20-30); Chloride 107 mmol/L (98-107); Glucose 99 mg/dL (74-106); Potassium 3.3 mmol/L (3.5-5.1); Sodium 141 mmol/L (136-145)
[2023-04-25 06:12] LABS: Bilirubin, Total 0.2 mg/dL (0.2-1.0); Total Protein 5.9 g/dL (5.7-8.2)
[2023-04-25] MEDS: cefTRIAXone 1GM/50ML D5W 50 ML IV SCH (09:51)
[2023-04-25] MEDS: amLODIPine BESYLATE 5 MG TAB PO SCH (09:52)
[2023-04-25] MEDS: CYANOCOBALAMIN 500 MCG TAB PO SCH (09:52)
[2023-04-25] MEDS: METOPROLOL SUCCINATE XL 50 MG TAB PO SCH (09:52)
[2023-04-25] MEDS ORDERED: MIDAZOLAM HCL 2MG/2ML 2ml VIAL (1mg/ml) ONE (12:21)
[2023-04-25] MEDS ORDERED: fentaNYL CITRATE 100 MCG/2 ML VL ONE (12:21)
[2023-04-25] MEDS ORDERED: LIDOCAINE 2%HCL (LOCAL ANESTH.) INJ 20ML MDV ONE ×2 (12:25→12:45)
[2023-04-25] MEDS ORDERED: IOHEXOL 350 MG/ML 100ML IJ ONE (12:25)
[2023-04-25] MEDS: KETOROLAC TROMETH 30 MG/ML 1ML VIAL IV PRN (16:57)
[2023-04-26 05:00] VITALS: BP 139/89; PULSE 85; RESP 17; TEMP 98.3; O2SAT 97
[2023-04-26 07:30] VITALS: PULSE 81; RESP 16; O2SAT 98
[2023-04-26 08:54] VITALS: BP 127/101; PULSE 81; RESP 19; TEMP 98.2; O2SAT 94
[2023-04-26 13:00] VITALS: BP 154/99; PULSE 75; RESP 17; TEMP 97.9; O2SAT 98
[2023-04-26 17:00] VITALS: BP 153/103; PULSE 109; RESP 18; TEMP 97.8; O2SAT 95
[2023-04-26 20:00] VITALS: BP 127/100; PULSE 81; PULSE 94; RESP 17; TEMP 36.6; O2SAT 98
[2023-04-27 07:30] VITALS: PULSE 90; RESP 17; O2SAT 97
[2023-04-27 09:00] VITALS: BP 144/94; PULSE 100; RESP 20; TEMP 98.5; O2SAT 98
[2023-04-27] MEDS ORDERED: LEVO500T91 PO (11:33)
[2023-04-27] MEDS ORDERED: METR-344 PO (11:33)
[2023-04-27] MEDS ORDERED: AMLO1TAB23 PO (11:33)
[2023-04-27] MEDS ORDERED: METO-6 PO (11:33)
[2023-04-27] MEDS ORDERED: TRAM50TA2 PO (11:33)
[2023-04-27] MEDS ORDERED: TAMS-35 PO (11:33)
[2023-04-27 13:00] VITALS: BP_SYST 148; BP_SYST 158; BP_DIAS 107; BP_DIAS 98; PULSE 85; RESP 20; TEMP 98.6; O2SAT 99
[2023-04-27 14:07] VITALS: BP 147/107; PULSE 85; RESP 17; TEMP 98.6; O2SAT 98
== END 2023-04-27 15:35 | disposition home or self-care (01) | DRG 720 ==
LOC: ER 09:22 → OVERFLOW 13:49 → WEST WING 17:26
PROVIDERS: ADMIT Nurse Practitioner Family; ATTEND Family Medicine
PROC: 0T9030Z Drainage of Right Kidney with Drainage Device, Percutaneous Approach (ICD-10-PCS; principal; 2023-04-25)
PROC: 0T9130Z Drainage of Left Kidney with Drainage Device, Percutaneous Approach (ICD-10-PCS; 2023-04-25)
DX: A41.9 Sepsis, unspecified organism (principal); N17.9 Acute kidney failure, unspecified; C68.0 Malignant neoplasm of urethra; K56.7 Ileus, unspecified; C67.9 Malignant neoplasm of bladder, unspecified; K76.0 Fatty (change of) liver, not elsewhere classified; N13.30 Unspecified hydronephrosis; N32.9 Bladder disorder, unspecified; I10 Essential (primary) hypertension; K40.90 Unilateral inguinal hernia, without obstruction or gangrene, not specified as recurrent; F17.210 Nicotine dependence, cigarettes, uncomplicated; R31.0 Gross hematuria; F12.10 Cannabis abuse, uncomplicated; K57.90 Diverticulosis of intestine, part unspecified, without perforation or abscess without bleeding; Z87.442 Personal history of urinary calculi; Z83.3 Family history of diabetes mellitus; Z80.3 Family history of malignant neoplasm of breast; N39.0 Urinary tract infection, site not specified
CPT/HCPCS: 36415; 50432; 71045; 74176; 74425; 76881; 76942; 78306; 80048; 80053; 80307; 81001; 85025; 85610; 86850; 86900; 86901; 99152; G0378; J1885; J2250; J2405; J3490

== ENCOUNTER 2023-11-08 13:17 | Inpatient (IN) | payer MEDICAID ==
[~2023-11-08] VITALS: Ht 157.5 cm; Wt 63.3 kg
[~2023-11-08 13:17] MED LIST changes: -ACET-1882 PO; -AML5T PO; +AMLO1TAB23 PO; -CYAN500T3 PO; -ERGO1CAP23 PO; -LEVO250T58 PO; +LEVO500T91 PO; +METR-344 PO; +TAMS-35 PO
[2023-11-08] MEDS: SODIUM CHLORIDE 0.9% 1,000 ML IV ONE ×2 (14:33→16:30)
[2023-11-08] MEDS: ONDANSETRON HCL 4 MG/2 ML VIAL IV ONE (14:34)
[2023-11-08] MEDS: MORPHINE SULFATE 4 MG/ML SYR/VIAL IV ONE (14:34)
[2023-11-08 14:39] LABS: Basophils # (auto) 0.1 10 ^3/uL (0-0.2); Basophils % (auto) 1.4 % (0.0-2.0); Eosinophils # (auto) 0.3 10 ^3/uL (0-0.8); Hematocrit 30.7 % (41.0-53.0); Hemoglobin 10.2 g/dL (13.5-17.5); Lymphocytes # (auto) 1.5 10 ^3/uL (0.4-5.4); Lymphocytes % (auto) 21.9 % (10.0-50.0); Mean Corpuscular Hemoglobin 30.6 pg (28.0-32.0); Mean Corpuscular Hgb Conc. 33.2 g/dL (32.0-36.0); Mean Corpuscular Volume 92.1 fL (80.0-100.0); Monocytes # (auto) 0.3 10 ^3/uL (0-1.3); Monocytes % (auto) 5.1 % (0.0-12.0); Neutrophils # (auto) 4.6 10 ^3/uL (1.6-8.6); Neutrophils % (auto) 67.6 % (37.0-80.0); Platelet Count (auto) 390 10^3/uL (140-450); Red Blood Cells 3.33 10^6/uL (4.5-5.90); Red Cell Distribution Width 16.1 % (11.8-14.3); White Blood Cell 6.8 10^3/uL (4.4-10.8)
[2023-11-08 14:47] VITALS: PULSE 107; RESP 20; O2SAT 99
[2023-11-08 14:55] LABS: Alanine Aminotransferase 32 U/L (7-40); Albumin 3.3 g/dL (3.2-4.8); Alkaline Phosphatase 132 U/L (46-116); Anion Gap 7 (5-15); Aspartate Aminotransferase 33 U/L (13-40); BUN/Creatinine Ratio 17.1 (10.0-20.0); Blood Urea Nitrogen 21 mg/dL (9-23); Calcium 8.5 mg/dL (8.7-10.4); Carbon Dioxide 20 mmol/L (20-30); Chloride 110 mmol/L (98-107); Glucose 127 mg/dL (74-106); Lipase 24 U/L (12-53); Potassium 3.5 mmol/L (3.5-5.1); Sodium 137 mmol/L (136-145)
[2023-11-08 14:56] LABS: Bilirubin, Total 0.2 mg/dL (0.2-1.0); Total Protein 5.9 g/dL (5.7-8.2)
[2023-11-08 15:01] LABS: INR 0.95 (0.9-1.15); Partial Thromboplastin Time 25.7 SEC (24.5-34.5); Prothrombin Time 10.1 sec (9.3-11.8)
[2023-11-08] MEDS: metroNIDAZOLE 500MG/100ML 100 ML IV ONE (16:55)
[2023-11-08] MEDS: PIPERACILLIN-TAZOB 3.375GM 100 ML IV ONE (17:16)
[2023-11-08 20:00] VITALS: PULSE 76; RESP 17; O2SAT 98
[2023-11-08] MEDS: HYDROmorphone HCL 2 MG/ML VL/or syr IV ONE (20:42)
[2023-11-08 21:31] LABS: Urine Amorphous Crystal FEW /hpf (None Seen); Urine Bacteria FEW /hpf (None Seen); Urine Blood Negative /uL (Negative); Urine Clarity Clear (Clear); Urine Color Colorless (Yellow); Urine Protein, UAD Negative (Negative); Urine Specific Gravity 1.009 (1.001-1.035); Urine Urobilinogen Normal (Negative); Urine WBC 13 /hpf (0 - 3)
[2023-11-08] MEDS ORDERED: ACETAMINOPHEN 325 MG TAB PO PRN (21:45)
[2023-11-08] MEDS ORDERED: ONDANSETRON HCL 4 MG/2 ML VIAL IV PRN (21:45)
[2023-11-08] MEDS ORDERED: DOCUSATE SOD 100 MG CAP PO PRN (21:45)
[2023-11-08] MEDS: SODIUM CHLOR 0.9% PF (SALINE LOCK) 10ML VIAL/SYR IV SCH (21:53)
[2023-11-08] MEDS: LACTATED RINGER'S 1,000 ML IV ONE (21:53)
[2023-11-08 23:30] VITALS: BP 136/99; PULSE 93; RESP 20; TEMP 98; O2SAT 98
[2023-11-09] VITALS (9 sets, daily range): BP systolic 102–136; BP diastolic 60–99; PULSE 78–102; RESP 14–20; TEMP 97.6–99.5; O2SAT 92–100
[2023-11-09] MEDS ORDERED: APIX5TAB PO (00:16)
[2023-11-09] MEDS ORDERED: DOCU-265 PO (00:16)
[2023-11-09] MEDS ORDERED: METH-1181 PO (00:16)
[2023-11-09] MEDS ORDERED: SODI650T PO (00:16)
[2023-11-09] MEDS ORDERED: MAGN241.4 PO (00:16)
[2023-11-09] MEDS ORDERED: NITR100C6 PO (00:16)
[2023-11-09] MEDS ORDERED: METO-289 PO (00:16)
[2023-11-09] MEDS ORDERED: FIDA200T PO (00:16)
[2023-11-09] MEDS ORDERED: ACET-1881 PO (00:16)
[2023-11-09] MEDS ORDERED: MORP1TAB12 PO (00:16)
[2023-11-09] MEDS: PIPERACILLIN-TAZOB 3.375GM 100 ML IV SCH (01:03)
[2023-11-09] MEDS: HYDROmorphone HCL 2 MG/ML VL/or syr IV PRN (01:35)
[2023-11-09 06:04] LABS: Basophils # (auto) 0.1 10 ^3/uL (0-0.2); Basophils % (auto) 1.3 % (0.0-2.0); Eosinophils % (auto) 14.4 % (0.0-7.0); Hematocrit 27.4 % (41.0-53.0); Hemoglobin 9.4 g/dL (13.5-17.5); Lymphocytes # (auto) 1.4 10 ^3/uL (0.4-5.4); Lymphocytes % (auto) 20.3 % (10.0-50.0); Mean Corpuscular Hemoglobin 32.1 pg (28.0-32.0); Mean Corpuscular Hgb Conc. 34.2 g/dL (32.0-36.0); Mean Corpuscular Volume 93.8 fL (80.0-100.0); Monocytes # (auto) 0.4 10 ^3/uL (0-1.3); Monocytes % (auto) 6.2 % (0.0-12.0); Neutrophils # (auto) 3.9 10 ^3/uL (1.6-8.6); Neutrophils % (auto) 57.8 % (37.0-80.0); Platelet Count (auto) 365 10^3/uL (140-450); Red Blood Cells 2.92 10^6/uL (4.5-5.90); Red Cell Distribution Width 15.9 % (11.8-14.3); White Blood Cell 6.8 10^3/uL (4.4-10.8)
[2023-11-09 06:31] LABS: Alanine Aminotransferase 31 U/L (7-40); Albumin 2.9 g/dL (3.2-4.8); Alkaline Phosphatase 125 U/L (46-116); Anion Gap 5 (5-15); Aspartate Aminotransferase 32 U/L (13-40); BUN/Creatinine Ratio 13.3 (10.0-20.0); Bilirubin, Total < 0.2 mg/dL (0.2-1.0); Blood Urea Nitrogen 20 mg/dL (9-23); Calcium 8.3 mg/dL (8.7-10.4); Carbon Dioxide 25 mmol/L (20-30); Chloride 111 mmol/L (98-107); Glucose 124 mg/dL (74-106); Potassium 3.6 mmol/L (3.5-5.1); Sodium 141 mmol/L (136-145); Total Protein 5.2 g/dL (5.7-8.2)
[2023-11-09] MEDS: METOPROLOL SUCCINATE XL 50 MG TAB PO SCH (09:51)
[2023-11-09] MEDS: TAMSULOSIN HYDROCHLORIDE 0.4 MG CAP PO SCH (09:51)
[2023-11-09] MEDS: amLODIPine BESYLATE 5 MG TAB PO SCH (09:52)
[2023-11-09] MEDS: ENOXAPARIN SOD 40 MG/0.4 ML SYRINGE SC SCH (09:53)
[2023-11-09] MEDS: HYDROcodone-ACET 5/325MG TAB PO PRN (23:28)
[2023-11-10] VITALS (7 sets, daily range): BP systolic 104–135; BP diastolic 66–86; PULSE 70–86; RESP 16–20; TEMP 97.6–98.9; O2SAT 96–99
[2023-11-10] MEDS: PIPERACILLIN-TAZOB 3.375GM 100 ML IV SCH (03:08)
[2023-11-10 06:23] LABS: Hematocrit 26.6 % (41.0-53.0); Hemoglobin 9.3 g/dL (13.5-17.5); Mean Corpuscular Hemoglobin 32.4 pg (28.0-32.0); Mean Corpuscular Hgb Conc. 35.1 g/dL (32.0-36.0); Mean Corpuscular Volume 92.2 fL (80.0-100.0); Platelet Count (auto) 329 10^3/uL (140-450); Red Blood Cells 2.88 10^6/uL (4.5-5.90); Red Cell Distribution Width 15.7 % (11.8-14.3); White Blood Cell 5.8 10^3/uL (4.4-10.8)
[2023-11-10 06:24] LABS: Basophils % (manual) 0 (0.0-2.0); Blast Cells 0; Metamyelocytes % 0; Myelocytes % 0; Promyelocytes % 0; Reactive Lymphocytes 0
[2023-11-10 06:29] LABS: Alanine Aminotransferase 24 U/L (7-40); Albumin 2.6 g/dL (3.2-4.8); Alkaline Phosphatase 106 U/L (46-116); Anion Gap 6 (5-15); Aspartate Aminotransferase 20 U/L (13-40); BUN/Creatinine Ratio 13.1 (10.0-20.0); Bilirubin, Total < 0.2 mg/dL (0.2-1.0); Blood Urea Nitrogen 18 mg/dL (9-23); Calcium 8.3 mg/dL (8.7-10.4); Carbon Dioxide 22 mmol/L (20-30); Chloride 113 mmol/L (98-107); Glucose 109 mg/dL (74-106); Potassium 3.3 mmol/L (3.5-5.1); Sodium 141 mmol/L (136-145); Total Protein 4.9 g/dL (5.7-8.2)
[2023-11-10 07:57] LABS: Band Neutrophils % (manual) 1; Eosinophils % (manual) 16 (0-7); Lymphocytes % (manual) 34 (10.0-50.0); Monocytes % (manual) 1 (0-12); Platelet Estimate Adequate
[2023-11-10] MEDS: KETOROLAC TROMETH 30 MG/ML 1ML VIAL IV ONE (18:38)
[2023-11-11] VITALS (8 sets, daily range): BP systolic 103–138; BP diastolic 69–91; PULSE 69–87; RESP 18–22; TEMP 98.1–99.2; O2SAT 97–99
[2023-11-11] MEDS: MORPHINE SULFATE INJ 2 MG/ml SYRG IV ONE (03:00)
[2023-11-11 06:43] LABS: Alanine Aminotransferase 22 U/L (7-40); Albumin 2.8 g/dL (3.2-4.8); Alkaline Phosphatase 98 U/L (46-116); Anion Gap 4 (5-15); BUN/Creatinine Ratio 13.2 (10.0-20.0); Blood Urea Nitrogen 17 mg/dL (9-23); Calcium 7.9 mg/dL (8.7-10.4); Carbon Dioxide 24 mmol/L (20-30); Chloride 111 mmol/L (98-107); Glucose 119 mg/dL (74-106); Potassium 3.2 mmol/L (3.5-5.1); Sodium 139 mmol/L (136-145)
[2023-11-11 06:44] LABS: Aspartate Aminotransferase 21 U/L (13-40); Bilirubin, Total < 0.2 mg/dL (0.2-1.0); Total Protein 4.9 g/dL (5.7-8.2)
[2023-11-11 06:53] LABS: Basophils # (auto) 0.1 10 ^3/uL (0-0.2); Basophils % (auto) 1.2 % (0.0-2.0); Eosinophils # (auto) 0.8 10 ^3/uL (0-0.8); Eosinophils % (auto) 14.3 % (0.0-7.0); Hematocrit 26.3 % (41.0-53.0); Hemoglobin 9.2 g/dL (13.5-17.5); Lymphocytes # (auto) 1.7 10 ^3/uL (0.4-5.4); Lymphocytes % (auto) 32.2 % (10.0-50.0); Mean Corpuscular Hemoglobin 32.5 pg (28.0-32.0); Mean Corpuscular Hgb Conc. 34.9 g/dL (32.0-36.0); Mean Corpuscular Volume 92.9 fL (80.0-100.0); Monocytes # (auto) 0.4 10 ^3/uL (0-1.3); Monocytes % (auto) 7.1 % (0.0-12.0); Neutrophils # (auto) 2.4 10 ^3/uL (1.6-8.6); Neutrophils % (auto) 45.2 % (37.0-80.0); Nucleated Red Blood Cells % 0.1 %; Platelet Count (auto) 324 10^3/uL (140-450); Red Blood Cells 2.83 10^6/uL (4.5-5.90); Red Cell Distribution Width 15.9 % (11.8-14.3); White Blood Cell 5.4 10^3/uL (4.4-10.8)
[2023-11-11] MEDS: MORPHINE SULFATE INJ 2 MG/ml SYRG IV PRN (09:00)
[2023-11-11] MEDS: POTASSIUM CHL 20 Meq TABLET PO ONE (13:07)
[2023-11-12] VITALS (8 sets, daily range): BP systolic 92–128; BP diastolic 59–84; PULSE 70–80; RESP 18–22; TEMP 97.5–98.9; O2SAT 95–100
[2023-11-12 06:30] LABS: Basophils # (auto) 0.1 10 ^3/uL (0-0.2); Basophils % (auto) 1.5 % (0.0-2.0); Eosinophils # (auto) 0.8 10 ^3/uL (0-0.8); Eosinophils % (auto) 12.1 % (0.0-7.0); Hematocrit 27.3 % (41.0-53.0); Hemoglobin 9.4 g/dL (13.5-17.5); Lymphocytes # (auto) 1.8 10 ^3/uL (0.4-5.4); Lymphocytes % (auto) 28.1 % (10.0-50.0); Mean Corpuscular Hemoglobin 31.8 pg (28.0-32.0); Mean Corpuscular Hgb Conc. 34.5 g/dL (32.0-36.0); Mean Corpuscular Volume 92.2 fL (80.0-100.0); Monocytes # (auto) 0.5 10 ^3/uL (0-1.3); Monocytes % (auto) 8.5 % (0.0-12.0); Neutrophils # (auto) 3.2 10 ^3/uL (1.6-8.6); Neutrophils % (auto) 49.8 % (37.0-80.0); Nucleated Red Blood Cells % 0.1 %; Platelet Count (auto) 351 10^3/uL (140-450); Red Blood Cells 2.97 10^6/uL (4.5-5.90); Red Cell Distribution Width 15.8 % (11.8-14.3); White Blood Cell 6.4 10^3/uL (4.4-10.8)
[2023-11-12 06:34] LABS: Alanine Aminotransferase 24 U/L (7-40); Albumin 2.9 g/dL (3.2-4.8); Alkaline Phosphatase 99 U/L (46-116); Anion Gap 10 (5-15); Aspartate Aminotransferase 20 U/L (13-40); BUN/Creatinine Ratio 12.8 (10.0-20.0); Bilirubin, Total 0.2 mg/dL (0.2-1.0); Blood Urea Nitrogen 16 mg/dL (9-23); Calcium 8.2 mg/dL (8.7-10.4); Carbon Dioxide 19 mmol/L (20-30); Chloride 110 mmol/L (98-107); Glucose 91 mg/dL (74-106); Potassium 3.6 mmol/L (3.5-5.1); Sodium 139 mmol/L (136-145); Total Protein 5.2 g/dL (5.7-8.2)
[2023-11-12] MEDS: traMADol HCL 50 MG TAB PO SCH (13:09)
[2023-11-12] MEDS: MORPHINE SULFATE 4 MG/ML SYR/VIAL IV PRN (15:45)
[2023-11-13] VITALS (9 sets, daily range): BP systolic 83–111; BP diastolic 49–75; PULSE 69–94; RESP 8–20; TEMP 98–98.9; O2SAT 95–97
[2023-11-13 07:00] LABS: Basophils # (auto) 0.1 10 ^3/uL (0-0.2); Basophils % (auto) 1.1 % (0.0-2.0); Eosinophils # (auto) 0.7 10 ^3/uL (0-0.8); Eosinophils % (auto) 10.4 % (0.0-7.0); Hematocrit 29.1 % (41.0-53.0); Hemoglobin 9.8 g/dL (13.5-17.5); Lymphocytes # (auto) 1.8 10 ^3/uL (0.4-5.4); Lymphocytes % (auto) 25.8 % (10.0-50.0); Mean Corpuscular Hemoglobin 31.2 pg (28.0-32.0); Mean Corpuscular Hgb Conc. 33.8 g/dL (32.0-36.0); Mean Corpuscular Volume 92.4 fL (80.0-100.0); Monocytes # (auto) 0.6 10 ^3/uL (0-1.3); Monocytes % (auto) 8.1 % (0.0-12.0); Neutrophils # (auto) 3.9 10 ^3/uL (1.6-8.6); Neutrophils % (auto) 54.6 % (37.0-80.0); Nucleated Red Blood Cells % 0.1 %; Platelet Count (auto) 381 10^3/uL (140-450); Red Blood Cells 3.15 10^6/uL (4.5-5.90); Red Cell Distribution Width 15.9 % (11.8-14.3); White Blood Cell 7.1 10^3/uL (4.4-10.8)
[2023-11-13 07:26] LABS: Alanine Aminotransferase 25 U/L (7-40); Alkaline Phosphatase 99 U/L (46-116); Anion Gap 7 (5-15); Aspartate Aminotransferase 17 U/L (13-40); BUN/Creatinine Ratio 11.5 (10.0-20.0); Blood Urea Nitrogen 15 mg/dL (9-23); Calcium 8.5 mg/dL (8.7-10.4); Carbon Dioxide 21 mmol/L (20-30); Chloride 108 mmol/L (98-107); Glucose 86 mg/dL (74-106); Potassium 3.8 mmol/L (3.5-5.1); Sodium 136 mmol/L (136-145)
[2023-11-13 07:27] LABS: Albumin 3.1 g/dL (3.2-4.8); Bilirubin, Total 0.2 mg/dL (0.2-1.0); Total Protein 5.5 g/dL (5.7-8.2)
[2023-11-14 01:00] VITALS: BP 101/68; PULSE 82; RESP 18; TEMP 98.7; O2SAT 94
[2023-11-14 05:00] VITALS: BP 105/72; PULSE 69; RESP 16; TEMP 98.8; O2SAT 100
[2023-11-14 07:35] VITALS: PULSE 76; RESP 18; O2SAT 97
[2023-11-14 10:39] VITALS: BP 102/71; PULSE 58; RESP 18; TEMP 98.4; O2SAT 96
[2023-11-14] MEDS ORDERED: LEVO500T91 PO (10:44)
[2023-11-14] MEDS ORDERED: METR-344 PO (10:44)
[2023-11-14 11:12] VITALS: BP 107/71; PULSE 58; TEMP 36.9
[2023-11-14 14:56] VITALS: BP 105/69; PULSE 66; RESP 17; TEMP 98.3; O2SAT 95
== END 2023-11-14 12:10 | disposition hospice, home (50) | DRG 249 ==
LOC: ER 13:17 → OVERFLOW 21:37 → EAST 23:22
PROVIDERS: ADMIT Internal Medicine; ATTEND Family Medicine
DX: K52.9 Noninfective gastroenteritis and colitis, unspecified (principal); N17.0 Acute kidney failure with tubular necrosis; L89.322 Pressure ulcer of left buttock, stage 2; C67.9 Malignant neoplasm of bladder, unspecified; I95.9 Hypotension, unspecified; F12.10 Cannabis abuse, uncomplicated; F17.210 Nicotine dependence, cigarettes, uncomplicated; Z87.442 Personal history of urinary calculi; Z90.79 Acquired absence of other genital organ(s); Z83.3 Family history of diabetes mellitus; Z59.00 Homelessness unspecified; Z80.3 Family history of malignant neoplasm of breast
CPT/HCPCS: 36415; 74176; 80053; 81001; 82270; 82962; 83605; 83690; 85007; 85025; 85027; 85048; 85610; 85730; 87040; 87045; 87081; 87086; 87427; 87493; 96361; 96365; 96368; 96375; G0378; J1885; J2405; J2543; J3490